=== PATIENT | male | born 1945 | race Hispanic/Latino ===

== ENCOUNTER 2017-10-11 17:48 | Inpatient (IN) | payer MEDICARE ==
[2017-10-11] MEDS ORDERED: ASPIRIN PO ONE (18:21)
[2017-10-11 18:46] LABS: Basophils % (Auto) 0.5 % (0.0-1.8); Eosinophils # (Auto) 0.3 K/mm3 (0.0-0.4); Eosinophils % (Auto) 3.5 % (0.0-4.3); Hematocrit 47.9 % (35.5-45.6); Hemoglobin 15.9 gm/dl (11.8-15.2); Lymphocytes # (Auto) 3.1 K/mm3 (1.2-5.4); Mean Corpuscular HGB Conc 33 % (32-34); Mean Corpuscular Hemoglobin 30 pg (28-32); Mean Corpuscular Volume 91 fl (84-94); Monocytes % (Auto) 13.4 % (0.0-7.3); Platelet Count 204 K/mm3 (140-440); Red Blood Count 5.25 M/mm3 (3.65-5.03); Red Cell Distribution Width 13.7 % (13.2-15.2)
[2017-10-11 18:57] LABS: INR 0.93 (0.87-1.13); Partial Thromboplastin Time 25.8 Sec. (24.2-36.6)
[2017-10-11 19:01] LABS: BUN/Creatinine Ratio 22; Blood Urea Nitrogen 20 mg/dL (9-20); Calcium 8.9 mg/dL (8.4-10.2); Hemolysis Index 11
[2017-10-11 19:26] LABS: Free T4 (Free Thyroxine) 0.99 ng/dL (0.76-1.46)
[2017-10-11 19:33] LABS: Bilirubin,Urine NEG (Negative); Blood,Urine NEG (Negative); Color,Urine Yellow (Yellow); Mucus,Urine FEW /HPF; Protein,Urine <15 mg/dL mg/dL (Negative); Urobilinogen,Urine < 2.0 mg/dL (<2.0); WBC,Urine < 1.0 /HPF (0.0-6.0)
[2017-10-11] MEDS ORDERED: ASPIRIN ONE (21:04)
[2017-10-11] MEDS ORDERED: HEPARIN/ 0.45% NACL-25,000 UNIT/500 ML 25,000 UNIT/500 ML BAG IV SCH (22:00)
[2017-10-11] MEDS ORDERED: LOPRESSOR IV ONE (22:00)
[2017-10-11] MEDS ORDERED: NACL 0.9% 1000 ML 1,000 ML IV ONE (22:04)
--- NOTE | 2017-10-11 22:06 | Emergency Department Report ---
ED Palpitations HPI - General Chief Complaint: Arrhythmia/Palpitations Stated Complaint: AFIB Time Seen by Provider: 10/11/17 21:38 Source: patient Mode of arrival: Ambulatory Limitations: No Limitations - History of Present Illness Initial Comments: Palpitations for 24 hours. No chest pain or shortness of breath. 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 The patient has never had this before. He was sent to the ER for admission. 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 Absent: respiratory distress - Cardiovascular Cardiovascular Exam: Present: tachycardia, irregular rhythm. Absent: systolic murmur, diastolic murmur, rubs, gallop - GI/Abdominal GI/Abdominal exam: Present: soft. Absent: tenderness - Rectal Rectal exam: Present: deferred - Extremities Exam Extremities exam: Present: normal inspection - Back Exam Back exam: Present: normal inspection - Neurological Exam Neurological exam: Present: alert, oriented X3 - Psychiatric Psychiatric exam: Present: normal affect, normal mood - Skin Skin exam: Present: warm, dry, intact, normal color. Absent: rash ED Course Vital Signs 10/11/17 10/11/17 10/11/17 18:14 20:54 20:56 Temperature 97.7 F Pulse Rate 68 137 H Respiratory 18 11 L 18 Rate Blood Pressure 108/87 Blood Pressure 123/64 [Left] O2 Sat by Pulse 97 99 Oximetry 10/11/17 21:00 Temperature Pulse Rate 81 Respiratory 14 Rate Blood Pressure 105/76 Blood Pressure [Left] O2 Sat by Pulse 100 Oximetry ED Medical Decision Making - Lab Data Result diagrams: 10/11/17 18:29 10/11/17 18:29 - EKG Data -: EKG Interpreted by Me EKG shows normal: axis, intervals, QRS complexes, ST-T waves Rate: tachycardia - Medical Decision Making 72-year-old male with past medical history of lymphoma that presents to the ER with palpitations. Patient is well-appearing a presentation. Heart rate is 140. EKG shows atrial flutter with RVR. His blood pressures in the low 100s. Patient states that this is baseline for him. He has never had this issue before. Lab work is unremarkable. The patient will be started on metoprolol/ heparin for management of his condition. He will be admitted for further management. Critical Care Time: Yes Critical care time in (mins) excluding proc time.: 32 Critical care attestation.: If time is entered above; I have spent that time in minutes in the direct care of this critically ill patient, excluding procedure time. ED Disposition Clinical Impression: Atrial flutter with rapid ventricular response Disposition: OP ADMIT IP TO THIS HOSP Is pt being admited?: Yes Does the pt Need Aspirin: No Condition: Stable Referrals: LARRY BATES MD [Primary Care Provider] - 3-5 Days
[2017-10-11] MEDS ORDERED: HEPARIN ONE (22:44)
[2017-10-11] MEDS ORDERED: HEPARIN 10,000 UNITS/10 ML IV ONE (22:47)
[2017-10-11] MEDS ORDERED: CORDARONE IV ONE (22:47)
[2017-10-11] MEDS ORDERED: CORDARONE 150 MG in D5W 100 ML IV ONE (23:00)
[2017-10-11] MEDS ORDERED: CORDARONE 900 MG in D5W 482 ML IV SCH ×2 (23:00→23:45)
--- NOTE | 2017-10-11 23:22 | XRay Report ---
FINAL REPORT EXAM: XR CHEST 1V AP HISTORY: palpitations TECHNIQUE: AP portable view of the chest. PRIORS: None. FINDINGS: The cardiomediastinal silhouette appears normal. The lungs are clear. The bones and soft tissues are unremarkable. IMPRESSION: No evidence of acute cardiopulmonary disease.
[2017-10-11] MEDS ORDERED: ZOFRAN IV PRN (23:41)
[2017-10-11] MEDS ORDERED: PERCOCET 5/325 PO PRN (23:41)
[2017-10-11] MEDS ORDERED: TYLENOL PO PRN (23:41)
[2017-10-11] MEDS ORDERED: SODIUM CHLORIDE FLUSH SYRINGE 10 ML IV PRN (23:41)
[2017-10-11] MEDS ORDERED: MORPHINE IV PRN (23:41)
--- NOTE | 2017-10-11 23:41 | Event Note ---
Date: 10/11/17 See dictated H/p in reports
[2017-10-12] MEDS: HEPARIN SUB-Q SCH ×2 (00:47→13:59)
[2017-10-12] MEDS: NACL 0.9% 1000 ML 1,000 ML IV SCH ×2 (03:37→07:32)
[2017-10-12 07:14] LABS: Basophils % (Auto) 0.5 % (0.0-1.8); Eosinophils # (Auto) 0.2 K/mm3 (0.0-0.4); Eosinophils % (Auto) 3.9 % (0.0-4.3); Hematocrit 42.7 % (35.5-45.6); Hemoglobin 13.9 gm/dl (11.8-15.2); Lymphocytes # (Auto) 2.2 K/mm3 (1.2-5.4); Lymphocytes % (Auto) 34.6 % (13.4-35.0); Mean Corpuscular HGB Conc 33 % (32-34); Mean Corpuscular Hemoglobin 30 pg (28-32); Mean Corpuscular Volume 92 fl (84-94); Monocytes # (Auto) 0.7 K/mm3 (0.0-0.8); Monocytes % (Auto) 11.2 % (0.0-7.3); Platelet Count 179 K/mm3 (140-440); Red Blood Count 4.64 M/mm3 (3.65-5.03); Red Cell Distribution Width 13.8 % (13.2-15.2)
[2017-10-12] MEDS ORDERED: SODIUM CHLORIDE FLUSH SYRINGE 10 ML IV PRN (07:21)
[2017-10-12] MEDS ORDERED: ZOFRAN IV PRN (07:21)
[2017-10-12] MEDS ORDERED: TYLENOL PO PRN (07:21)
[2017-10-12 07:33] LABS: Alanine Aminotransferase 14 units/L (7-56); Albumin 3.2 g/dL (3.9-5); BUN/Creatinine Ratio 21; Blood Urea Nitrogen 17 mg/dL (9-20); Hemolysis Index 12
--- NOTE | 2017-10-12 08:27 | History and Physical Report ---
CHIEF COMPLAINT: Palpitations for 24 hours. HISTORY OF PRESENT ILLNESS: A 72-year-old male was having palpitations for the last 24 hours. 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 The patient has seen the [facility]. Otherwise, ____. He was sent from the Cardiology office to Emergency Room for further evaluation. PAST MEDICAL HISTORY: Significant for follicular lymphoma. PAST SURGICAL HISTORY: Right knee and right shoulder surgery. SOCIAL HISTORY: Never a smoker. FAMILY HISTORY: Hypertension. REVIEW OF SYSTEMS: Significant for palpitations, no chest pain. No shortness of breath. Otherwise, review of systems negative. PHYSICAL EXAMINATION: GENERAL: Elderly male, cooperative during examination. VITAL SIGNS: Blood pressure 108/87, temperature 97.7, pulse is 68, respiratory rate is 18. HEENT: Unremarkable. Pupils equal and reactive. NECK: Supple, no lymphadenopathy, no thyromegaly. LUNGS: Clear to auscultation and percussion. Good air entry. CARDIOVASCULAR: S1, S2 heard. No gallop, no murmur, no rub. Apical impulse in left fifth intercostal space and midclavicular line. ABDOMEN: Soft and benign. No hepatosplenomegaly. No guarding, no rigidity. EXTREMITIES: Good pedal pulses. No pedal edema. DIAGNOSTIC DATA: EKG shows atrial flutter with RVR. Heart rate of about 40 per minute. LABORATORY DATA: Significant for a white count of 7700, hemoglobin of 15.9 and hematocrit of 47.9. Electrolytes are normal. TSH is slightly high at 5.48. Urine is normal. ASSESSMENT AND PLAN: New onset supraventricular tachycardia. The patient was initiated on amiodarone. The drug of choice would have been Cardizem, but Cardizem is not available in the hospital. The patient is being admitted to ICU because of the amiodarone. The patient responded to amiodarone. His heart rate came down to 80. To keep the amiodarone drip. Cardiology consult requested. Follicular lymphoma in remission. Deep venous thrombosis prophylaxis, heparin 5000 q. 12 hours. CRITICAL CARE STATEMENT: The high probability of a clinically significant sudden or life-threatening deterioration of the pulmonary, cardiac, and renal systems required my full and direct attention, intervention, and personal management. The aggregate critical care time was 35 minutes. This time is in addition to time spent performing reported procedures, but includes the following, data review and interpretation, the patient assessment and monitoring of vital signs, documentation, medication orders and management. JOB# [id number] FLORENTIN/SHIVA
--- NOTE | 2017-10-12 09:58 | Consultation ---
History of Present Illness Consult date: 10/12/17 Requesting physician: STUART KHALIL Consult reason: tachycardia History of present illness: The pt is a 72 YO male with a past medical history significant for follicular lymphoma s/p chemotherapy, GERD, hiatal hernia. He was seen in consultation in our office yesterday by Dr. Olson with complaints of palpitations and tachycardia and was found to be in AFlutter with RVR and was referred to ED for further eval/management. Following arrival, pt was noted to be in atrial flutter with HR 140s and was initiated on amio gtt and heparin gtt. This morning , he converted to SR. Pt reports that prior to presenting at our office, he had been experiencing persistent palpitations since Sunday evening around 6PM. He reports that for the past 10 years, he has been experiencing intermittent palpitations and tachycardia which always spontaneously resolved after only a few hours. His palpitations and tachycardia are always accompanied by gastric reflux symptoms and he thought that his palpitations were secondary to GERD. On evaluation, he remains in SR. He denies any current palpitations, chest pain, SOB, n/v, diaphoresis, dizziness or syncope. 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 Past History Past Surgical History: Other (follicular lymphoma) Social history: , lives with family Medications and Allergies Allergies Allergy/AdvReac Type Severity Reaction Status Date / Time No Known Allergies Allergy Unverified 10/11/17 18:20 Active Meds: Active Medications Acetaminophen (Tylenol) 650 mg PO Q4H PRN PRN Reason: Pain MILD(1-3)/Fever >100.5/AVERY Heparin Sodium (Porcine) (Heparin) 5,000 unit SUB-Q Q12HR STANLEY Last Admin: 10/12/17 00:47 Dose: 5,000 unit Amiodarone HCl 900 mg/ (Dextrose) 500 mls @ 33.33 mls/hr IV DIRECT STANLEY; Protocol Last Admin: 10/11/17 23:41 Dose: 1 mg/min, 33.33 mls/hr Sodium Chloride (Nacl 0.9% 1000 Ml) 1,000 mls @ 80 mls/hr IV DIRECT STANLEY Last Admin: 10/12/17 07:32 Dose: 80 mls/hr Morphine Sulfate (Morphine) 2 mg IV Q4H PRN PRN Reason: Pain, Moderate (4-6) Ondansetron HCl (Zofran) 4 mg IV Q8H PRN PRN Reason: Nausea And Vomiting Oxycodone/Acetaminophen (Percocet 5/325) 1 tab PO Q6H PRN PRN Reason: Pain, Moderate (4-6) Sodium Chloride (Sodium Chloride Flush Syringe 10 Ml) 10 ml IV BID STANLEY Sodium Chloride (Sodium Chloride Flush Syringe 10 Ml) 10 ml IV PRN PRN PRN Reason: LINE FLUSH Review of Systems Constitutional: no weight loss, no weight gain, no fever, no chills, no sweats Ears, nose, mouth and throat: no ear pain, no nose pain, no sinus pressure, no sinus pain Cardiovascular: palpitations, rapid/irregular heart beat, no chest pain, no orthopnea, no edema, no syncope, no lightheadedness, no shortness of breath, no dyspnea on exertion, no paroxysmal nocturnal dyspnea, no high blood pressure, no leg edema, no decreased exercise tolerance Respiratory: no cough, no shortness of breath, no dyspnea on exertion, no congestion, no wheezing, no pain on inspiration Gastrointestinal: no abdominal pain, no nausea, no vomiting, no diarrhea, no constipation, no change in bowel habits Genitourinary Male: no dysuria, no hematuria, no flank pain, no discharge, no urinary frequency, no urinary hesitancy Musculoskeletal: no neck stiffness, no neck pain, no shooting arm pain, no arm numbness/tingling, no low back pain, no shooting leg pain, no leg numbness/ tingling Integumentary: no rash, no pruritis, no redness, no sores, no wounds Neurological: no head injury, no paralysis, no weakness, no parathesias, no numbness, no tingling, no seizures Psychiatric: no anxiety Endocrine: no cold intolerance, no heat intolerance Hematologic/Lymphatic: no easy bruising, no easy bleeding, no lymphadenopathy Allergic/Immunologic: no urticaria, no wheezing, no persistent infections Physical Examination Vital Signs Temp Pulse Resp BP Pulse Ox 97.7 F 68 18 108/87 97 10/11/17 18:14 10/11/17 18:14 10/11/17 18:14 10/11/17 18:14 10/11/17 18:14 General appearance: no acute distress HEENT: Positive: PERRL, Normocephaly, Mucus Membranes Moist Neck: Positive: neck supple, trachea midline Cardiac: Positive: Reg Rate and Rhythm, S1/S2 Lungs: Positive: clear to auscultation Neuro: Positive: Grossly Intact, Cranial Nerve 2-12 Intact Abdomen: Positive: Soft. Negative: Tender Skin: Positive: Clear. Negative: Rash, Wound Musculoskeletal: No Fluid Collection, No Pain, Normal Range of Motion Extremities: Absent: edema Results 10/12/17 06:41 10/12/17 06:41 Cardiac Enzymes 10/12/17 Range/Units 06:41 AST 19 (5-40) units/L Coagulation 10/11/17 Range/Units 18:34 PT 12.9 (12.2-14.9) Sec. INR 0.93 (0.87-1.13) APTT 25.8 (24.2-36.6) Sec. CBC 10/11/17 10/12/17 Range/Units 18:29 06:41 WBC 7.7 6.4 (4.5-11.0) K/mm3 RBC 5.25 H 4.64 (3.65-5.03) M/mm3 Hgb 15.9 H 13.9 (11.8-15.2) gm/dl Hct 47.9 H 42.7 (35.5-45.6) % Plt Count 204 179 (140-440) K/mm3 Lymph # 3.1 2.2 (1.2-5.4) K/mm3 Mason # 1.0 H 0.7 (0.0-0.8) K/mm3 Eos # 0.3 0.2 (0.0-0.4) K/mm3 Baso # 0.0 0.0 (0.0-0.1) K/mm3 Comprehensive Metabolic Panel 10/11/17 10/12/17 Range/Units 18:29 06:41 Sodium 142 140 (137-145) mmol/L Potassium 4.4 4.3 (3.6-5.0) mmol/L Chloride 103.6 106.2 (98-107) mmol/L Carbon Dioxide 28 26 (22-30) mmol/L BUN 20 17 (9-20) mg/dL Creatinine 0.9 0.8 (0.8-1.5) mg/dL Glucose 90 126 H (75-100) mg/dL Calcium 8.9 8.0 L (8.4-10.2) mg/dL AST 19 (5-40) units/L ALT 14 (7-56) units/L Alkaline Phosphatase 51 (35-129) units/L Total Protein 5.4 L (6.3-8.2) g/dL Albumin 3.2 L (3.9-5) g/dL - Imaging and Cardiology Echo: pending EKG: report reviewed, image reviewed EKG interpretations - Telemetry EKG Rhythm: Sinus Rhythm - EKG Supraventricular dysrhythmia: atrial flutter Assessment and Plan Assessment: Paroxysmal atrial flutter with RVR --> SR Hypotension GERD / hiatal hernia H/o follicular lymphoma s/p chemotherapy Elevated TSH - further eval/management per primary Plan: Obtain echo. Obtain serum Mg. D/c amio gtt. Initiate PO lopressor 25mg BID. Hold for HR <60 and/or SBP <100. Continue heparin gtt at this time and consider conversion to OAC prior to hospital discharge. Pt is hesitant to be on retirement systemic anticoagulation given his lifestyle and risk of injury (he is a mountain climber). Currently stable cardiac status. Pt may tx out of ICU to telemetry from cardiology standpoint. Assessment and plan reviewed with pt and pt's family at bedside. The patient has been seen in conjunction with Dr. Landa who agrees with the assessment and plan of care.
[2017-10-12] MEDS ORDERED: SODIUM CHLORIDE FLUSH SYRINGE 10 ML IV SCH (10:00)
[2017-10-12] MEDS ORDERED: HEPARIN/ 0.45% NACL-25,000 UNIT/500 ML 25,000 UNIT/500 ML BAG IV SCH (12:00)
--- NOTE | 2017-10-12 12:22 | Consultation ---
History of Present Illness Consult date: 10/12/17 Requesting physician: STUART KHALIL Reason for consult: other (Atrial Fibrillation with RVR; H/O Malignant Lymphoma) History of present illness: PULMONARY/CCM CONSULT NOTE (Full dictation # ) Please see dictated notes for full details Past History Past Surgical History: Other (follicular lymphoma) Social history: , lives with family Medications and Allergies Allergies Allergy/AdvReac Type Severity Reaction Status Date / Time No Known Allergies Allergy Unverified 10/11/17 18:20 Active Meds: Active Medications Acetaminophen (Tylenol) 650 mg PO Q4H PRN PRN Reason: Pain MILD(1-3)/Fever >100.5/AVERY Famotidine (Pepcid) 20 mg PO QDAY STANLEY Heparin Sodium/Sodium Chloride (Heparin/ 0.45% Nacl-25,000 Unit/500 Ml) 25,000 unit in 500 mls @ 26 mls/hr IV TITR STANLEY; Protocol Metoprolol Tartrate (Lopressor) 25 mg PO BID STANLEY Morphine Sulfate (Morphine) 2 mg IV Q4H PRN PRN Reason: Pain, Moderate (4-6) Ondansetron HCl (Zofran) 4 mg IV Q8H PRN PRN Reason: Nausea And Vomiting Oxycodone/Acetaminophen (Percocet 5/325) 1 tab PO Q6H PRN PRN Reason: Pain, Moderate (4-6) Sodium Chloride (Sodium Chloride Flush Syringe 10 Ml) 10 ml IV BID STANLEY Sodium Chloride (Sodium Chloride Flush Syringe 10 Ml) 10 ml IV PRN PRN PRN Reason: LINE FLUSH Physical Examination Vital signs: Vital Signs Temp Pulse Resp BP Pulse Ox 97.7 F 68 18 108/87 97 10/11/17 18:14 10/11/17 18:14 10/11/17 18:14 10/11/17 18:14 10/11/17 18:14 Results - Laboratory Findings CBC and BMP: 10/12/17 06:41 10/12/17 06:41 PT/INR, D-dimer PT 12.9 Sec. (12.2-14.9) 10/11/17 18:34 INR 0.93 (0.87-1.13) 10/11/17 18:34 Abnormal lab findings: Abnormal Labs 10/11/17 10/11/17 10/12/17 18:29 18:37 06:41 RBC 5.25 H Hgb 15.9 H Hct 47.9 H Lymph % (Auto) 40.0 H Greenlee % (Auto) 13.4 H 11.2 H Greenlee # 1.0 H Glucose Calcium Total Protein Albumin TSH 5.480 H 10/12/17 06:41 RBC Hgb Hct Lymph % (Auto) Greenlee % (Auto) Greenlee # Glucose 126 H Calcium 8.0 L Total Protein 5.4 L Albumin 3.2 L TSH
[2017-10-12 12:28] LABS: Hematocrit 42.2 % (35.5-45.6)
[2017-10-12 12:40] LABS: INR 1.03 (0.87-1.13)
[2017-10-12 12:46] LABS: Partial Thromboplastin Time 84.2 Sec. (24.2-36.6)
[2017-10-12] MEDS: LOPRESSOR PO SCH ×2 (12:48→23:04)
[2017-10-12] MEDS: SODIUM CHLORIDE FLUSH SYRINGE 10 ML IV SCH ×2 (12:49→23:06)
[2017-10-12] MEDS: PEPCID PO SCH (12:50)
--- NOTE | 2017-10-12 13:06 | Progress Note ---
Assessment and Plan Assessment and plan: Problems New onset svt - was transitioned from amio gtt to oral meds, now in SR -fup echo, transfer to Tele History Interval history: Review of systems Constitutional: No fevers, no malaise, no joint pains CVS: No chest pain, no orthopnea, no dyspnea on exertion, no pedal edema GI: No abdominal pain, no diarrhea, no vomiting, no constipation Respiratory: No shortness of breath, no wheezing, no coughing Hospitalist Physical - Physical exam Narrative exam: General.: Appears well, no distress, nontoxic HEENT: Moist mucous membranes, extraocular muscles intact, no lymphadenopathy Neck: supple Cardiac: S1-S2 heard Lungs: clear to auscultation bilaterally Abdomen: soft , nontender, nondistended, bowel sounds positive Extremities: no edema clubbing or cyanosis Skin: no rash or lesions Neurologic: no gross focal deficits Psych: appropriate behavior, appropriate mood, corporative, judgment intact - Constitutional Vitals: Temp Pulse Resp BP Pulse Ox 97.7 F 72 12 102/62 97 10/12/17 06:00 10/12/17 12:48 10/12/17 06:21 10/12/17 12:48 10/12/17 06:21 General appearance: Present: no acute distress Results - Labs CBC & Chem 7: 10/12/17 12:17 10/12/17 06:41 Labs: Laboratory Last Values WBC 6.4 K/mm3 (4.5-11.0) 10/12/17 06:41 RBC 4.64 M/mm3 (3.65-5.03) 10/12/17 06:41 Hgb 14.0 gm/dl (11.8-15.2) 10/12/17 12:17 Hct 42.2 % (35.5-45.6) 10/12/17 12:17 MCV 92 fl (84-94) 10/12/17 06:41 MCH 30 pg (28-32) 10/12/17 06:41 MCHC 33 % (32-34) 10/12/17 06:41 RDW 13.8 % (13.2-15.2) 10/12/17 06:41 Plt Count 191 K/mm3 (140-440) 10/12/17 12:17 Lymph % (Auto) 34.6 % (13.4-35.0) 10/12/17 06:41 Levy % (Auto) 11.2 % (0.0-7.3) H 10/12/17 06:41 Eos % (Auto) 3.9 % (0.0-4.3) 10/12/17 06:41 Baso % (Auto) 0.5 % (0.0-1.8) 10/12/17 06:41 Lymph # 2.2 K/mm3 (1.2-5.4) 10/12/17 06:41 Levy # 0.7 K/mm3 (0.0-0.8) 10/12/17 06:41 Eos # 0.2 K/mm3 (0.0-0.4) 10/12/17 06:41 Baso # 0.0 K/mm3 (0.0-0.1) 10/12/17 06:41 Seg Neutrophils % 49.8 % (40.0-70.0) 10/12/17 06:41 Seg Neutrophils # 3.2 K/mm3 (1.8-7.7) 10/12/17 06:41 PT 14.0 Sec. (12.2-14.9) 10/12/17 12:17 INR 1.03 (0.87-1.13) 10/12/17 12:17 APTT 84.2 Sec. (24.2-36.6) H* 10/12/17 12:17 Heparin Anti-Xa Level 0.56 U.I./ml (0.3-0.7) 10/12/17 06:41 Sodium 140 mmol/L (137-145) 10/12/17 06:41 Potassium 4.3 mmol/L (3.6-5.0) 10/12/17 06:41 Chloride 106.2 mmol/L (98-107) 10/12/17 06:41 Carbon Dioxide 26 mmol/L (22-30) 10/12/17 06:41 Anion Gap 12 mmol/L 10/12/17 06:41 BUN 17 mg/dL (9-20) 10/12/17 06:41 Creatinine 0.8 mg/dL (0.8-1.5) 10/12/17 06:41 Estimated GFR > 60 ml/min 10/12/17 06:41 BUN/Creatinine Ratio 21 % 10/12/17 06:41 Glucose 126 mg/dL (75-100) H 10/12/17 06:41 Hemoglobin A1c 5.5 % (4-6) 10/12/17 00:53 Calcium 8.0 mg/dL (8.4-10.2) L 10/12/17 06:41 Magnesium 2.10 mg/dL (1.7-2.3) 10/12/17 10:19 Total Bilirubin 0.60 mg/dL (0.1-1.2) 10/12/17 06:41 AST 19 units/L (5-40) 10/12/17 06:41 ALT 14 units/L (7-56) 10/12/17 06:41 Alkaline Phosphatase 51 units/L (35-129) 10/12/17 06:41 Troponin T < 0.010 ng/mL (0.00-0.029) 10/12/17 00:53 Total Protein 5.4 g/dL (6.3-8.2) L 10/12/17 06:41 Albumin 3.2 g/dL (3.9-5) L 10/12/17 06:41 Albumin/Globulin Ratio 1.5 % 10/12/17 06:41 TSH 5.480 mlU/mL (0.270-4.200) H 10/11/17 18:37 Free T4 0.99 ng/dL (0.76-1.46) 10/11/17 18:37 Urine Color Yellow (Yellow) 10/11/17 18:53 Urine Turbidity Clear (Clear) 10/11/17 18:53 Urine pH 5.0 (5.0-7.0) 10/11/17 18:53 Ur Specific Wadsworth 1.010 (1.003-1.030) 10/11/17 18:53 Urine Protein <15 mg/dl mg/dL (Negative) 10/11/17 18:53 Urine Glucose (UA) Neg mg/dL (Negative) 10/11/17 18:53 Urine Ketones Neg mg/dL (Negative) 10/11/17 18:53 Urine Blood Neg (Negative) 10/11/17 18:53 Urine Nitrite Neg (Negative) 10/11/17 18:53 Urine Bilirubin Neg (Negative) 10/11/17 18:53 Urine Urobilinogen < 2.0 mg/dL (<2.0) 10/11/17 18:53 Ur Leukocyte Esterase Neg (Negative) 10/11/17 18:53 Urine WBC (Auto) < 1.0 /HPF (0.0-6.0) 10/11/17 18:53 Urine RBC (Auto) 6.0 /HPF (0.0-6.0) 10/11/17 18:53 Urine Mucus Few /HPF 10/11/17 18:53
[2017-10-12] MEDS ORDERED: PEPCID PO ONE (22:40)
[2017-10-13] MEDS: LOPRESSOR PO SCH (09:23)
[2017-10-13] MEDS: SODIUM CHLORIDE FLUSH SYRINGE 10 ML IV SCH (09:23)
[2017-10-13] MEDS: PEPCID PO SCH (09:24)
--- NOTE | 2017-10-13 10:46 | Progress Note ---
Assessment and Plan aflutter converted to nsr hypercougable state rec: elquis 5mg bid and toprol xl 25mg and discharge home and normal lv function and no significant regurgitations. out patient ablation. Subjective Date of service: 10/13/17 Principal diagnosis: aflutter Interval history: pt has no more palpations and no chest pain or sob Objective Vital Signs Temp Pulse Pulse Resp Resp BP Pulse Ox 10/13/17 09:23 65 110/70 10/13/17 08:09 97.9 F 65 18 110/75 98 10/13/17 04:33 62 20 113/73 95 10/13/17 00:26 65 20 110/68 97 10/13/17 00:00 65 18 10/12/17 23:04 75 126/77 10/12/17 21:23 18 10/12/17 21:13 75 20 126/77 96 10/12/17 19:27 66 10/12/17 18:10 72 19 121/62 96 10/12/17 18:00 75 13 121/62 96 10/12/17 17:50 72 8 L 121/62 96 10/12/17 17:40 66 14 121/62 10/12/17 17:30 68 11 L 121/62 10/12/17 17:20 70 18 121/62 10/12/17 17:10 63 15 121/62 10/12/17 17:00 75 15 121/62 10/12/17 16:50 78 20 112/62 97 10/12/17 16:40 69 17 112/62 96 10/12/17 16:30 72 14 112/62 96 10/12/17 16:20 71 17 112/62 97 10/12/17 16:10 66 10 L 112/62 96 10/12/17 16:00 98.3 F 65 14 112/62 96 10/12/17 15:50 69 19 101/61 97 10/12/17 15:40 66 13 101/61 97 10/12/17 15:30 65 14 101/61 97 10/12/17 15:20 68 18 101/61 98 10/12/17 15:10 64 14 101/61 97 10/12/17 15:00 64 17 107/66 97 10/12/17 14:50 61 18 107/66 96 10/12/17 14:40 67 17 107/66 96 04/20/18 14:30 72 18 98 10/12/17 14:28 69 15 96 10/12/17 14:11 61 12 107/66 96 10/12/17 14:01 63 16 107/66 96 10/12/17 13:51 68 16 112/68 96 10/12/17 13:41 83 16 112/68 97 10/12/17 13:31 64 15 112/68 97 10/12/17 13:21 68 12 112/68 96 10/12/17 13:11 66 15 112/68 96 10/12/17 13:00 66 16 112/68 96 10/12/17 12:51 76 18 102/62 96 10/12/17 12:48 72 102/62 10/12/17 12:41 75 15 102/62 97 10/12/17 12:31 63 16 102/62 96 10/12/17 12:21 63 15 102/62 97 10/12/17 12:11 69 17 102/62 99 10/12/17 12:00 97.8 F 58 L 10 L 102/62 96 10/12/17 11:51 60 18 107/74 96 10/12/17 11:41 78 14 107/74 96 10/12/17 11:31 65 20 107/74 96 10/12/17 11:21 65 18 107/74 97 10/12/17 11:11 62 15 107/74 96 10/12/17 11:00 65 12 107/74 95 10/12/17 10:51 66 20 104/69 96 - Physical Examination General: Appears Well HEENT: Positive: PERRL, Normocephaly, Mucus Membranes Moist Neck: Positive: neck supple, trachea midline Cardiac: Positive: Reg Rate and Rhythm Lungs: Positive: clear to auscultation Neuro: Positive: Grossly Intact, Cranial Nerve 2-12 Intact Abdomen: Positive: Soft. Negative: Tender Skin: Positive: Clear. Negative: Rash, Wound Musculoskeletal: No Fluid Collection, No Pain, Normal Range of Motion Extremities: Absent: edema - Labs and Meds Coagulation 10/12/17 Range/Units 12:17 PT 14.0 (12.2-14.9) Sec. INR 1.03 (0.87-1.13) APTT 84.2 H* (24.2-36.6) Sec. CBC 10/12/17 Range/Units 12:17 Hgb 14.0 (11.8-15.2) gm/dl Hct 42.2 (35.5-45.6) % Plt Count 191 (140-440) K/mm3 - Imaging and Cardiology EKG: report reviewed, image reviewed Echo: report reviewed (normal lv function ef 55-60%) - Telemetry EKG Rhythm: Sinus Rhythm (no further afib)
[2017-10-13] MEDS ORDERED: ELIQUIS PO SCH (11:00)
--- NOTE | 2017-10-13 11:57 | Discharge Summary ---
Providers - Providers Date of Admission: 10/11/17 23:41 Attending physician: REILLY ROSS MD 10/11/17 23:41 Consult to Physician [CONS] Routine Comment: Consulting Provider: SATISH KELLEY Physician Instructions: Reason For Exam: SVT 10/11/17 23:54 Consult to Physician [CONS] Routine Comment: Consulting Provider: TIAGO WALKER Physician Instructions: Reason For Exam: CCU Primary care physician: LARRY BATES MD Hospitalization Condition: Stable Hospital course: 72-year-old man with significant past medical history who presented with palpitations 1 day. He was found to have atrial fibrillation with RVR. He was admitted to ICU, received amiodarone drip, he was transitioned to oral medications. He went on to have an echocardiogram that showed a preserved EF. He was started on oral beta sara and oral anticoagulants. Discharge diagnoses Atrial fibrillation with hypercoagulable states Disposition: - TO HOME OR SELFCARE Time spent for discharge: 33 minutes Core Measure Documentation - Palliative Care Palliative Care/ Comfort Measures: Not Applicable - Core Measures Any of the following diagnoses?: none Exam - Constitutional Vitals: Temp Pulse Resp BP Pulse Ox 97.9 F 65 18 110/70 98 10/13/17 08:09 10/13/17 09:23 10/13/17 08:09 10/13/17 09:23 10/13/17 08:09 General appearance: Present: no acute distress, well-nourished - EENT Eyes: Present: PERRL ENT: hearing intact, clear oral mucosa - Neck Neck: Present: supple, normal ROM - Respiratory Respiratory effort: normal Respiratory: bilateral: CTA - Cardiovascular Heart Sounds: Present: S1 & S2. Absent: rub, click - Extremities Extremities: pulses symmetrical, No edema Peripheral Pulses: within normal limits - Abdominal General gastrointestinal: Present: soft, non-tender, non-distended, normal bowel sounds Male genitourinary: Present: normal - Integumentary Integumentary: Present: clear, warm, dry - Musculoskeletal Musculoskeletal: gait normal, strength equal bilaterally - Psychiatric Psychiatric: appropriate mood/affect, intact judgment & insight - Neurologic Neurologic: CNII-XII intact, moves all extremities Plan Follow up with: SATISH KELLEY MD [Staff Physician] - 7 Days ([place] office on 2017 @ 2:45PM) LARRY BATES MD [Primary Care Provider] - 3-5 Days COURTNEY JONES MD [Staff Physician] - 7 Days ([place] office on 2017 @ 1:30PM) Prescriptions: Apixaban [Eliquis] 5 mg PO Q12HR #60 tablet Metoprolol Xl [Metoprolol SUCCINATE ER TAB] 25 mg PO QDAY #30 tablet
[2017-10-13 12:25] VITALS: BP 115/72
[2017-10-13] MEDS ORDERED: TOPROL XL PO SCH (22:00)
== END 2017-10-13 13:30 | disposition home or self-care (01) | DRG 309 ==
LOC: ED 17:48 → CC1 23:41 → 4A 10-12 18:36
PROVIDERS: ADMIT Internal Medicine; ATTEND Internal Medicine
DX: I48.91 Unspecified atrial fibrillation (principal); D68.59 Other primary thrombophilia; I47.1 Supraventricular tachycardia; I48.92 Unspecified atrial flutter; I95.9 Hypotension, unspecified; K21.9 Gastro-esophageal reflux disease without esophagitis; K44.9 Diaphragmatic hernia without obstruction or gangrene; Z82.49 Family history of ischemic heart disease and other diseases of the circulatory system
CPT/HCPCS: 36415; 71045; 80048; 80053; 81001; 83036; 83735; 84439; 84443; 84484; 85014; 85018; 85025; 85049; 85520; 85610; 85730; 93005; 93010; 93306; 96365; 96375; 99291; J0282; J1644; J7030; J7060